=== PATIENT | female | born 1940 | race Caucasian/White ===

== ENCOUNTER → 2019-12-25 13:59 | Outpatient (CLI) | payer MEDICARE, OTHER, SELFPAY ==
--- NOTE | ~2019-12-25 | XR_ITS ---
XR wrist LT min 3V DATE: 12/25/2019 14:23 INDICATION: Left wrist pain. No injury. TECHNIQUE: 4 views COMPARISON: None FINDINGS: There is severe hypertrophic osteoarthritic change at the first carpometacarpal joint. Ther e are scattered carpal bone degenerative cysts. Additional navicular views are recommended to exclude navicular waist fracture. Otherwise no recent fracture or dislocation is detected. 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
== END ==
PROVIDERS: PCP Physician Assistant; Visit Provider Family Medicine
DX: M19.032 Primary osteoarthritis, left wrist (principal)
CPT/HCPCS: 73110

== ENCOUNTER → 2019-12-26 14:32 | Outpatient (CLI) | payer MEDICARE, OTHER, SELFPAY ==
--- NOTE | ~2019-12-26 | XR_ITS ---
XR wrist LT 2V DATE: 12/26/2019 15:02 INDICATION: Left wrist pain. No injury. TECHNIQUE: 2 additional navicular views COMPARISON: 12/25/2019 left wrist FINDINGS: A prominent up to 6 mm apparent degenerative cyst is noted at the waist of the navicular eliazar ne. No apparent recent fracture is noted. No evidence of avascular necrosis. There is severe hypertrophic osteoarthritic change at the first carpometacarpal joint. Diffuse osteopenia is noted otherwise. 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
== END ==
PROVIDERS: PCP Physician Assistant; Visit Provider Family Medicine
DX: M19.032 Primary osteoarthritis, left wrist (principal)
CPT/HCPCS: 73100

== ENCOUNTER → 2024-04-27 12:00 | Outpatient (CLI) | payer MEDICARE, OTHER, SELFPAY ==
--- NOTE | ~2024-04-27 | XR_ITS ---
Left Knee Technique: AP, lateral, and sunrise views were obtained. Clinical History: Pain Findings: No fracture or dislocation is seen. Osseous alignment is anatomic. There is severe tricompa rtmental degenerative change.. Soft tissues are unremarkable. No joint effusion is seen. Impression: Severe tricompartmental degenerative change, probably worst in the medial compartment. Reviewed, dictated and finalized at [facility]. Impression: Severe tricompartmental degenerative change, probably worst in the medial martha rtment.
== END ==
LOC: EXPCRAD 12:06
PROVIDERS: PCP Physician Assistant; Visit Provider Physician Assistant
DX: M17.12 Unilateral primary osteoarthritis, left knee (principal)
CPT/HCPCS: 73562